=== PATIENT | female | born 1980 | race Two or more races ===

== ENCOUNTER 2024-11-18 15:15 | Emergency (ER) | payer OTHER ==
[~2024-11-18] VITALS: Ht 160 cm; Wt 58.0 kg
[2024-11-18 15:18] VITALS: O2SAT 100
[2024-11-18 15:32] VITALS: BP 168/99; PULSE 74; RESP 16; O2SAT 100
[2024-11-18] MEDS ORDERED: ACET-2708 MT (15:46)
[2024-11-18 16:29] VITALS: TEMP 98.6
[2024-11-18] MEDS: ACETAMINOPHEN 325MG TABLET PO ONE (16:29)
== END 2024-11-18 16:41 | disposition home or self-care (01) ==
LOC: ER 15:15
DX: S09.90XA Unspecified injury of head, initial encounter (principal); W18.30XA Fall on same level, unspecified, initial encounter; Y93.89 Activity, other specified; Y92.89 Other specified places as the place of occurrence of the external cause; Y99.8 Other external cause status
CPT/HCPCS: 99282